=== PATIENT | male | born 1940 | race Caucasian/White ===

== ENCOUNTER 2019-05-12 08:35 | Day surgery (SDC) | payer OTHER, BC ==
[2019-05-09 08:40] VITALS: BMI 25.0
--- NOTE | 2019-05-12 10:47 | HP ---
Satellite H - Chief Complaint History of Present Illness: 79 year old man with ESRD on HD who wishes to transition to Peritoneal dialysis. He has had no prior surgery. He has an AVF in his left arm. History Source: Patient Limitations to Obtaining History: No Limitations - Past Medical History Allergies/Adverse Reactions: Allergies Allergy/AdvReac Type Severity Reaction Status Date / Time Sulfa (Sulfonamide Allergy Intermediate Verified 05/09/19 08:41 Antibiotics) Cardiovascular: Yes: HTN Renal/: Yes: Renal Failure, Hemodialysis - Current Medications Current Medications: Home Medications Medication Instructions Recorded Alfuzosin HCl [Alfuzosin HCl ER] 10 mg PO DAILY 05/09/19 Allopurinol [Zyloprim -] 100 mg PO DAILY 05/09/19 Alprazolam [Xanax] 0.25 mg PO BID 05/09/19 Amlodipine Besylate [Norvasc -] 5 mg PO DAILY 05/09/19 Atenolol [Tenormin] 50 mg PO DAILY 05/09/19 Finasteride 5 mg PO DAILY 05/09/19 Pantoprazole Sodium [Protonix] 40 mg PO DAILY 05/09/19 Sodium Bicarbonate 650 mg PO TID 05/09/19 Torsemide [Demadex -] 20 mg PO ASDIR 05/09/19 Satellite Physical Exam - Physical Examination Vital Signs: Vital Signs Period Temp Pulse Resp BP Sys/Devlin Pulse Ox Last 24 Hr 97.5 F 60 20 140/73 97 General Appearance: Well Nourished, Well Developed, Alert & Oriented x3 ENT: Clear Lung: Clear to auscultation Heart: Regular rate & rhythm Abdomen: Soft, Other (left flank hernia) Extremities: No edema Satellite Impression/Plan - Impression/Plan Impression: ESRD Operative Procedure: Laparoscopy, placement PD catheter Date to be Performed: 05/12/19
[2019-05-12] MEDS ORDERED: PROPOFOL 20 ML ONE (11:01)
[2019-05-12] MEDS ORDERED: ROCURONIUM BROMIDE 50 MG/5 ML SYRINGE ONE (11:01)
[2019-05-12] MEDS ORDERED: MIDAZOLAM HCL 2 MG/2 ML SINGLE DOSE VIAL ONE (11:05)
[2019-05-12] MEDS ORDERED: ceFAZolin SODIUM 1 GM VIAL IVPB ONE (11:19)
[2019-05-12] MEDS ORDERED: BUPIVACAINE HCL/PF 0.5% (5 MG/ML) 30 ML VIAL IJ ONE (11:20)
[2019-05-12] MEDS ORDERED: NEOSTIGMINE METHYLSULFATE 0.5 MG/ML - 10 ML MDV ONE (11:45)
--- NOTE | 2019-05-12 12:00 | OP ---
Operative Note - Note: Operative Date: 05/12/19 Pre-Operative Diagnosis: ESRD on HD Operation: Laparoscopy, placement PD catheter Findings: No intraabdominal adhesions Post-Operative Diagnosis: Same as Pre-op Surgeon: Joe Aguilar Anesthesiologist/COUNTERINTELLIGENCE/HUMINT SPECIALIST: Ewa Ross MD Anesthesia: General
[2019-05-12] MEDS ORDERED: ONDANSETRON 4 MG/2 ML VIAL IVPUSH PRN (12:21)
[2019-05-12 14:49] VITALS: BP 148/60; PULSE 54; TEMP 97.2
[2019-05-12] MEDS ORDERED: oxyCODONE HCL 5 MG TABLET ONE (14:53)
[2019-05-12] MEDS ORDERED: oxyCODONE HCL 5 MG TABLET PO ONE (14:55)
--- NOTE | 2019-05-15 19:52 | OP ---
DATE OF OPERATION: 05/12/2019 SURGEON: Joe Prescott MD. PROCEDURE: Laparoscopy with placement of peroneal dialysis catheter. PREOPERATIVE DIAGNOSIS: End-stage renal disease on hemodialysis. POSTOPERATIVE DIAGNOSIS: End-stage renal disease on hemodialysis. ANESTHESIA: General anesthesia. ANESTHESIOLOGIST: Ewa Ross MD. OPERATIVE FINDINGS: There were no intraabdominal adhesions. OPERATIVE PROCEDURE: Following routine patient identification, general anesthesia was induced. The abdomen was prepped with ChloraPrep. Timeout was performed. The Veress needle was inserted through the umbilicus, and pneumoperitoneum was established with carbon dioxide to 15 mmHg pressure. Marcaine 0.5% was infiltrated in the skin, and a small skin incision made in the left abdominal wall. A 5-mm Optiview port was then placed under laparoscopic guidance. Abdominal exploration was then carried out with the above-noted findings. An 8-mm incision was then made to the right above the umbilicus and carried through subcutaneous tissues using cautery until the muscle fascia was reached. An 8-mm bladeless trocar was then advanced until the tip was seen tenting the peritoneum and was then directed towards the pelvis where it entered the peritoneal cavity inferior to the umbilicus. A swan neck double cuff takeoff catheter was then straightened with a stylet, passed through the 8-mm port and deployed in the pelvis. The port was removed, leaving the inner cuff at the level of the fascia. The end of the catheter was attached to a curved metal tunnel, which was passed through the subcutaneous tissues to exit at the previously chosen site on the abdominal wall. Balloon lock adaptor was attached, and 1 L of saline was run into the peritoneal cavity in less than 4 minutes. The bag was dropped to the floor, and approximately 300 mL drained within 1 minute. All ports were then removed. Skin incisions were closed with subcutaneous sutures of 3-0 Vicryl and running subcuticular suture of 4-0 Biosyn for the skin. Dermabond glue was applied as a dressing. The catheter was fixed to the skin with a Tegaderm. Patient was extubated, taken to the recovery room in stable condition. JOE PRESCOTT M.D. [id number]
== END 2019-05-12 17:20 | disposition home or self-care (01) ==
LOC: JASU-SURG 08:35
PROVIDERS: ATTEND Surgery
PROC: 0WHG43Z Insertion of Infusion Device into Peritoneal Cavity, Percutaneous Endoscopic Approach (ICD-10-PCS; principal; 2019-05-12 10:30)
DX: I12.0 Hypertensive chronic kidney disease with stage 5 chronic kidney disease or end stage renal disease (principal); N18.6 End stage renal disease; Z99.2 Dependence on renal dialysis
CPT/HCPCS: 36415; 84132; 94760; J1644

== ENCOUNTER 2020-07-28 04:17 | Day surgery (SDC) | payer OTHER, BC ==
[2020-07-27 09:11] VITALS: BMI 25.4
[2020-07-28] MEDS ORDERED: EPHEDRINE SULFATE/0.9% NACL/PF 50 MG/10 ML SYRINGE NR ONE (06:55)
[2020-07-28] MEDS ORDERED: PROPOFOL 20 ML ONE ×2 (06:56)
[2020-07-28] MEDS ORDERED: SUCCINYLCHOLINE CHLORIDE 200 MG/10 ML SYRINGE ONE (06:56)
[2020-07-28] MEDS ORDERED: KETAMINE HCL 200 MG/20 ML VIAL ONE (06:57)
[2020-07-28] MEDS ORDERED: LIDOCAINE HCL 2% JELLY (5 ML/TUBE) ONE (06:59)
[2020-07-28] MEDS ORDERED: LIDOCAINE HCL/PF 2% SDV 5ML VIAL ONE ×2 (06:59→08:25)
[2020-07-28] MEDS ORDERED: DEXMEDETOMIDINE HCL 200 MCG/2 ML IVPB ONE (07:04)
[2020-07-28] MEDS ORDERED: BUPIVACAINE HCL/PF 0.5% (5MG/ML) 10 ML VIAL NR ONE (08:19)
[2020-07-28] MEDS ORDERED: BACITRACIN 15 GM TUBE TOPICAL OINTMENT ONE (08:35)
[2020-07-28] MEDS ORDERED: ACETAMINOPHEN 500 MG TABLET (FP) PO PRN (08:48)
[2020-07-28] MEDS ORDERED: MIDAZOLAM HCL 2 MG/2 ML SINGLE DOSE VIAL IVPUSH ONE ×3 (09:00→09:45)
[2020-07-28] MEDS ORDERED: MIDAZOLAM HCL 2 MG/2 ML SINGLE DOSE VIAL ONE (09:00)
[2020-07-28] MEDS ORDERED: ACETAMINOPHEN 325 MG TABLET (FP) ONE (11:21)
[2020-07-28] MEDS ORDERED: ACETAMINOPHEN 325 MG TABLET (FP) PO ONE (11:54)
[2020-07-28 13:46] VITALS: BP 159/67; PULSE 57; TEMP 97.1
== END 2020-07-28 15:01 | disposition home or self-care (01) ==
LOC: JASU-SURG 04:17
PROVIDERS: ATTEND Surgery
PROC: 0WPG03Z Removal of Infusion Device from Peritoneal Cavity, Open Approach (ICD-10-PCS; principal; 2020-07-28 08:00)
DX: Z49.02 Encounter for fitting and adjustment of peritoneal dialysis catheter (principal); I12.0 Hypertensive chronic kidney disease with stage 5 chronic kidney disease or end stage renal disease; N18.6 End stage renal disease
CPT/HCPCS: 36415; 84132; 88300-TC; 94760; J1644